=== PATIENT | male | born 1975 | race Caucasian/White ===

== ENCOUNTER 2017-07-25 15:38 | Inpatient (IN) | payer OTHER ==
[~2017-07-25] VITALS: Ht 182.9 cm; Wt 95.2 kg
[2017-07-25 16:12] LABS: BASOPHIL (%) 0.8 % (0-1); BASOPHIL COUNT 0.1 K/uL (0-0.1); EOSINOPHIL (%) 3.1 % (0-5); EOSINOPHIL COUNT 0.2 K/uL (0-0.3); HEMATOCRIT 45.6 % (38.0-50.0); HEMOGLOBIN 16.5 G/DL (12.5-16.6); IMMATURE GRANULOCYTE (%) 0.3 % (0.0-0.7); LYMPHOCYTE (%) 30.2 % (15-42); LYMPHOCYTE COUNT 2.2 K/uL (1.0-2.8); MCH 30.4 PG (29.0-34.0); MCHC 36.2 G/DL (30.0-36.0); MCV 84.1 FL (86-99); MONOCYTE (%) 9.3 % (3-12); MONOCYTE COUNT 0.7 K/uL (0-0.8); NEUTROPHIL (%) 56.3 % (45-76); NEUTROPHIL COUNT 4.1 K/uL (1.8-6.4); PLATELET COUNT 163 K/uL (156-360); RBC DIS.WIDTH-CV 11.9 % (11.8-14.6); RBC DIS.WIDTH-SD 35.7 % (39-53); RED BLOOD COUNT 5.42 M/uL (4.00-5.50); WHITE BLOOD COUNT 7.3 K/uL (4.1-10.2)
[2017-07-25 16:20] LABS: ALBUMIN 4.3 g/dL (3.2-4.8); CHLORIDE 103 mEq/L (99-109); POTASSIUM 3.8 mEq/L (3.7-5.4); SODIUM 138 mEq/L (136-147)
[2017-07-25 16:23] LABS: GLUCOSE 98 mg/dL (70-99); TOTAL PROTEIN 7.4 g/dL (6.4-8.3)
[2017-07-25 16:25] LABS: TOTAL BILIRUBIN 0.7 mg/dL (0.0-1.0)
[2017-07-25 16:26] LABS: ALKALINE PHOSPHATASE 85 IU/L (3-129); CREATININE 1.3 mg/dL (0.6-1.3); GFR ESTIMATE (CALCULATED) > 59 mL/min/ (58.99-99999)
[2017-07-25 16:27] LABS: UREA NITROGEN (BUN) 18 mg/dL (9-23)
[2017-07-25 16:28] LABS: AST (GOT) 29 IU/L (2-34)
[2017-07-25 16:29] LABS: ALT (GPT) 25 IU/L (3-49)
[2017-07-25 16:33] LABS: TROP-I INTERPRETATION POSITIVE
[2017-07-25 16:42] LABS: TROPONIN-I 2.92 ng/mL (0.0-0.30)
[2017-07-25 17:18] LABS: PTT 33.5 SEC (25-37)
[2017-07-25] MEDS ORDERED: ADULT ASPIRIN R81 MG PO (17:31)
[2017-07-25] MEDS ORDERED: L-ARGININE500 MG PO (17:31)
[2017-07-25] MEDS ORDERED: LISINOPRIL10 MG PO (17:31)
[2017-07-25] MEDS ORDERED: AMLODIPINE BESYL5 MG PO (17:31)
[2017-07-25 21:14] VITALS: BP 132/93
[2017-07-25 21:21] VITALS: BP 132/93
[2017-07-25 22:14] VITALS: BP 133/86
[2017-07-25 23:14] VITALS: BP 118/83
[2017-07-26] VITALS (7 sets, daily range): BP systolic 110–141; BP diastolic 71–105
[2017-07-26 01:21] LABS: TROP-I INTERPRETATION POSITIVE
[2017-07-26 06:05] LABS: BASOPHIL (%) 0.9 % (0-1); BASOPHIL COUNT 0.1 K/uL (0-0.1); EOSINOPHIL (%) 4.6 % (0-5); EOSINOPHIL COUNT 0.3 K/uL (0-0.3); HEMATOCRIT 42.3 % (38.0-50.0); HEMOGLOBIN 15.2 G/DL (12.5-16.6); IMMATURE GRANULOCYTE (%) 0.1 % (0.0-0.7); LYMPHOCYTE (%) 46.1 % (15-42); LYMPHOCYTE COUNT 3.1 K/uL (1.0-2.8); MCH 30.6 PG (29.0-34.0); MCHC 35.9 G/DL (30.0-36.0); MCV 85.3 FL (86-99); MONOCYTE (%) 9.4 % (3-12); MONOCYTE COUNT 0.6 K/uL (0-0.8); NEUTROPHIL (%) 38.9 % (45-76); NEUTROPHIL COUNT 2.6 K/uL (1.8-6.4); PLATELET COUNT 146 K/uL (156-360); RBC DIS.WIDTH-CV 11.9 % (11.8-14.6); RBC DIS.WIDTH-SD 36.4 % (39-53); RED BLOOD COUNT 4.96 M/uL (4.00-5.50); WHITE BLOOD COUNT 6.7 K/uL (4.1-10.2)
[2017-07-26 06:18] LABS: TROP-I INTERPRETATION POSITIVE; TROPONIN-I 2.67 ng/mL (0.0-0.30)
[2017-07-26 06:24] LABS: HDL CHOLESTEROL 37 MG/DL (Desirable>=40); LDL CHOLESTEROL 138 mg/dL (Desirable<100); NON-HDL CHOLESTEROL 152 mg/dL (Desirable<160); TOTAL CHOLESTEROL 189 mg/dL (Desirable<200); TRIGLYCERIDES 71 MG/DL (Normal: <150)
[2017-07-26 10:09] LABS: HEMOGLOBIN A1c (GLYCOHEMOGLOB) 5.5 % (Below 5.7)
[2017-07-26] MEDS ORDERED: HEPARIN SO25000 UNIT IV (14:07)
[2017-07-26] MEDS ORDERED: CLOPIDOGREL75 MG PO (14:07)
[2017-07-26] MEDS ORDERED: ATORVASTATIN CA80 MG PO (14:07)
[2017-07-26] MEDS ORDERED: NITRO-DUR1 EAC1 TD (14:08)
[2017-07-26] MEDS ORDERED: CARVEDILOL3.125 MG PO (14:08)
[2017-07-26] MEDS ORDERED: NOVOLOG 10100 UNITS/ SC (14:10)
== END 2017-07-27 01:18 | disposition short-term general hospital (02) | DRG 281 ==
LOC: EME 15:38 → 4EAST 19:24 → EDOF 19:24 → ENRESERV 19:26 → 4EAST 21:07
PROVIDERS: Emergency Medicine; Hospitalist; Physician Assistant Medical
DX: I21.4 Non-ST elevation (NSTEMI) myocardial infarction (principal); I16.1 Hypertensive emergency; N43.3 Hydrocele, unspecified; I13.10 Hypertensive heart and chronic kidney disease without heart failure, with stage 1 through stage 4 chronic kidney disease, or unspecified chronic kidney disease; E11.22 Type 2 diabetes mellitus with diabetic chronic kidney disease; N18.9 Chronic kidney disease, unspecified; E66.3 Overweight; Z68.28 Body mass index [BMI] 28.0-28.9, adult; I25.10 Atherosclerotic heart disease of native coronary artery without angina pectoris; I25.84 Coronary atherosclerosis due to calcified coronary lesion
CPT/HCPCS: 71046; 76870; 80053; 80061; 82948; 83036; 83735; 84484; 85025; 85027; 85347; 85610; 85730; 93005; 99281; 99285; C1769; C1887; J1644; J1815; J2250; J3010

== ENCOUNTER 2017-09-01 10:22 | Inpatient (IN) | payer OTHER ==
[~2017-09-01] VITALS: Ht 195.6 cm; Wt 94.2 kg
[2017-09-01] VITALS (7 sets, daily range): BP systolic 141–197; BP diastolic 81–120
[~2017-09-01 10:22] MED LIST: ADULT ASPIRIN R81 MG PO; AMLODIPINE BESYL5 MG PO; ATORVASTATIN CA80 MG PO; CARVEDILOL3.125 MG PO; CLOPIDOGREL75 MG PO; HEPARIN SO25000 UNIT IV; L-ARGININE500 MG PO; LISINOPRIL10 MG PO; NITRO-DUR1 EAC1 TD; NOVOLOG 10100 UNITS/ SC
[2017-09-01 12:36] LABS: BASOPHIL (%) 1.6 % (0-1); BASOPHIL COUNT 0.1 K/uL (0-0.1); EOSINOPHIL COUNT 1.2 K/uL (0-0.3); HEMATOCRIT 47.5 % (38.0-50.0); HEMOGLOBIN 15.7 G/DL (12.5-16.6); IMMATURE GRANULOCYTE (%) 0.3 % (0.0-0.7); LYMPHOCYTE (%) 27.5 % (15-42); LYMPHOCYTE COUNT 2.4 K/uL (1.0-2.8); MCH 29.5 PG (29.0-34.0); MCHC 33.1 G/DL (30.0-36.0); MCV 89.3 FL (86-99); MONOCYTE (%) 6.6 % (3-12); MONOCYTE COUNT 0.6 K/uL (0-0.8); NEUTROPHIL COUNT 4.3 K/uL (1.8-6.4); PLATELET COUNT 183 K/uL (156-360); RED BLOOD COUNT 5.32 M/uL (4.00-5.50); WHITE BLOOD COUNT 8.6 K/uL (4.1-10.2)
[2017-09-01 12:40] LABS: PTT 30.7 SEC (25-37)
[2017-09-01 13:28] LABS: CHLORIDE 106 MEQ/L (99-109); CREATININE 1.5 MG/DL (0.6-1.3); GFR ESTIMATE (CALCULATED) 55 mL/min/ (58.99-99999); GLUCOSE 104 mg/dL (70-99); POTASSIUM 4.4 MEQ/L (3.7-5.4); SODIUM 141 MEQ/L (136-147); UREA NITROGEN (BUN) 16 mg/dL (9-23)
[2017-09-01 13:31] LABS: TROP-I INTERPRETATION INDETERMINATE; TROPONIN-I 0.32 ng/mL (0.0-0.30)
[2017-09-01] MEDS ORDERED: LOPRESSOR50 MG PO (15:00)
[2017-09-01] MEDS ORDERED: OXYCODONE HCL5 MG PO (15:01)
[2017-09-01] MEDS ORDERED: TYLENOL REGULA325 MG PO (15:02)
[2017-09-01 19:43] LABS: TROP-I INTERPRETATION POSITIVE; TROPONIN-I 1.23 ng/mL (0.0-0.30)
[2017-09-02 00:15] VITALS: BP 149/99
[2017-09-02 02:24] LABS: HEMATOCRIT 40.6 % (38.0-50.0); HEMOGLOBIN 13.9 G/DL (12.5-16.6); MCHC 34.2 G/DL (30.0-36.0); MCV 87.7 FL (86-99); PLATELET COUNT 151 K/uL (156-360); RBC DIS.WIDTH-CV 13.1 % (11.8-14.6); RBC DIS.WIDTH-SD 41.5 % (39-53); RED BLOOD COUNT 4.63 M/uL (4.00-5.50); WHITE BLOOD COUNT 9.9 K/uL (4.1-10.2)
[2017-09-02 02:36] LABS: TROP-I INTERPRETATION POSITIVE
[2017-09-02 02:43] LABS: TROPONIN-I 6.54 ng/mL (0.0-0.30)
[2017-09-02 05:25] VITALS: BP 139/94
[2017-09-02 07:22] VITALS: BP 130/83
[2017-09-02 09:36] LABS: CHLORIDE 104 MEQ/L (99-109); CREATININE 1.3 MG/DL (0.6-1.3); GFR ESTIMATE (CALCULATED) > 59 mL/min/ (58.99-99999); GLUCOSE 122 mg/dL (70-99); POTASSIUM 4.2 MEQ/L (3.7-5.4); SODIUM 140 MEQ/L (136-147); TROP-I INTERPRETATION POSITIVE; TROPONIN-I 6.06 ng/mL (0.0-0.30); UREA NITROGEN (BUN) 16 mg/dL (9-23)
[2017-09-02 12:13] VITALS: BP 132/91
[2017-09-02 16:10] VITALS: BP 133/75
[2017-09-02 20:13] VITALS: BP 137/91
[2017-09-03 00:17] VITALS: BP 132/87
[2017-09-03 01:19] LABS: TROP-I INTERPRETATION POSITIVE
[2017-09-03 04:44] VITALS: BP 148/97
[2017-09-03 05:48] LABS: TROP-I INTERPRETATION POSITIVE; TROPONIN-I 33.15 ng/mL (0.0-0.30)
[2017-09-03 06:03] LABS: CHLORIDE 107 MEQ/L (99-109); CREATININE 1.4 MG/DL (0.6-1.3); GFR ESTIMATE (CALCULATED) > 59 mL/min/ (58.99-99999); GLUCOSE 103 mg/dL (70-99); POTASSIUM 3.8 MEQ/L (3.7-5.4); SODIUM 141 MEQ/L (136-147); UREA NITROGEN (BUN) 14 mg/dL (9-23)
[2017-09-03 07:01] VITALS: BP 14/97
[2017-09-03 11:33] VITALS: BP 140/94
[2017-09-03 17:27] VITALS: BP 149/96
[2017-09-03 19:45] VITALS: BP 142/93
[2017-09-04 00:40] VITALS: BP 132/87
[2017-09-04 05:00] VITALS: BP 128/84
[2017-09-04 05:39] LABS: HEMATOCRIT 41.4 % (38.0-50.0); HEMOGLOBIN 13.7 G/DL (12.5-16.6); MCH 29.1 PG (29.0-34.0); MCHC 33.1 G/DL (30.0-36.0); MCV 87.9 FL (86-99); PLATELET COUNT 132 K/uL (156-360); RBC DIS.WIDTH-CV 12.9 % (11.8-14.6); RBC DIS.WIDTH-SD 41.7 % (39-53); RED BLOOD COUNT 4.71 M/uL (4.00-5.50); WHITE BLOOD COUNT 9.8 K/uL (4.1-10.2)
[2017-09-04 06:31] LABS: CHLORIDE 105 MEQ/L (99-109); CREATININE 1.2 MG/DL (0.6-1.3); GFR ESTIMATE (CALCULATED) > 59 mL/min/ (58.99-99999); GLUCOSE 123 mg/dL (70-99); POTASSIUM 4.1 MEQ/L (3.7-5.4); SODIUM 138 MEQ/L (136-147); UREA NITROGEN (BUN) 16 mg/dL (9-23)
[2017-09-04 07:20] VITALS: BP 131/87
[2017-09-04 15:53] VITALS: BP 125/79
[2017-09-04 17:20] VITALS: BP 135/89
[2017-09-04 20:00] VITALS: BP 140/90
[2017-09-05 00:15] VITALS: BP 142/98
[2017-09-05 04:00] VITALS: BP 131/91
[2017-09-05 09:30] VITALS: BP 142/100
[2017-09-05] MEDS ORDERED: NITROSTAT0.4 MG SL (09:41)
[2017-09-05] MEDS ORDERED: LISINOPRIL20 MG PO (09:41)
[2017-09-05] MEDS ORDERED: AMLODIPINE BESYL5 MG PO (09:41)
[2017-09-05 12:00] VITALS: BP 134/84
== END 2017-09-05 14:00 | disposition home or self-care (01) | DRG 281 ==
LOC: EME 10:22 → EDOF 14:44 → ENRESERV 14:48 → 5WEST 16:10 → 4EAST 19:58 → ENRESERV 20:03 → 4EAST 09-02 00:18
PROVIDERS: Emergency Medicine; Hospitalist; Internal Medicine; Internal Medicine Cardiovascular Disease; Nurse Practitioner Adult Health
DX: I21.4 Non-ST elevation (NSTEMI) myocardial infarction (principal); I25.810 Atherosclerosis of coronary artery bypass graft(s) without angina pectoris; I16.0 Hypertensive urgency; I43 Cardiomyopathy in diseases classified elsewhere; I13.10 Hypertensive heart and chronic kidney disease without heart failure, with stage 1 through stage 4 chronic kidney disease, or unspecified chronic kidney disease; E11.22 Type 2 diabetes mellitus with diabetic chronic kidney disease; N18.9 Chronic kidney disease, unspecified; I25.2 Old myocardial infarction; Z95.1 Presence of aortocoronary bypass graft; Z95.5 Presence of coronary angioplasty implant and graft; G43.909 Migraine, unspecified, not intractable, without status migrainosus
CPT/HCPCS: 71045; 71275; 80048; 83880; 84484; 85025; 85027; 85610; 85730; 93005; 99281; 99285; C1760; C1769; C1887; C1894; J0360; J1644; J1650; J2250; J3010; J7040; J7050